=== PATIENT | male | born 1970 | race Caucasian/White ===

== ENCOUNTER → 2024-05-19 07:26 | Outpatient (REF) | payer BC, SELFPAY | LOC: HWRCS 07:26 | PROVIDERS: ATTENDING PHYSICIAN Internal Medicine Cardiovascular Disease; FAMILY PHYSICIAN Family Medicine | DX: R06.02 Shortness of breath (principal); I10 Essential (primary) hypertension; R94.31 Abnormal electrocardiogram [ECG] [EKG]; E78.00 Pure hypercholesterolemia, unspecified | CPT/HCPCS: 93306 ==

== ENCOUNTER → 2024-05-22 08:06 | Outpatient (REF) | payer BC, SELFPAY ==
--- NOTE | 2024-05-22 09:16 | CARDSERVLU ---
Echocardiogram with Lumason completed after protocol screening completed. Allergies verified.
Patent IV site: 22 g IV inserted in left hand, 1st attempt
IV site flushed with 0.9% NaCl pre and post administration.
Diluted bolus method utilized to enhance visualization of ventricular [place].
Total volume given: 3.5 mL
Patient tolerated all procedures well without complications.
IV discontinued and bandage applied after pressure held. Pt tolerated well.
== END ==
LOC: RCS 08:06
PROVIDERS: ATTENDING PHYSICIAN Internal Medicine Cardiovascular Disease; FAMILY PHYSICIAN Family Medicine
DX: R06.02 Shortness of breath (principal); I10 Essential (primary) hypertension; R94.31 Abnormal electrocardiogram [ECG] [EKG]; E78.00 Pure hypercholesterolemia, unspecified
CPT/HCPCS: 93017; 93350; Q9950